=== PATIENT | male | born 1955 | race Caucasian/White ===

== ENCOUNTER 2017-10-06 08:25 | Inpatient (IN) | payer BC, OTHER ==
[2017-10-06] VITALS (10 sets, daily range): BP systolic 115–137; BP diastolic 56–84; PULSE 58–87; RESP 19–22; TEMP 97.7–99.4; O2SAT 94–99
[~2017-10-06] VITALS: Ht 182.9 cm; Wt 73.1 kg
[~2017-10-06 08:25] MED LIST: ASPI81 PO; CEPH500C3 PO; LORT5TAB PO; NIAC100T3 PO; SULF1TAB47 PO; TAB-TAB PO
[2017-10-06] MEDS ORDERED: IOHEXOL 350 MG/ML 10 ML VIAL (for RAD DIAG) IVCONTRAST ONE (08:26)
[2017-10-06] MEDS ORDERED: MULTTAB67 PO (08:40)
[2017-10-06] MEDS ORDERED: VENTAER INH (08:40)
[2017-10-06] MEDS ORDERED: NIAC100T2 PO (08:40)
[2017-10-06] MEDS ORDERED: PRED50 PO (08:40)
[2017-10-06] MEDS ORDERED: ASPI81CH6 CHEW (08:40)
[2017-10-06] MEDS ORDERED: BENZ1CAP51 PO (08:40)
[2017-10-06] MEDS ORDERED: ZITH250T PO (08:40)
--- NOTE | 2017-10-06 08:46 | PD ---
HPI Chief Complaint: Respiratory Symptoms Time Seen by Provider: 08:32 Travel History International Travel<30 days: No Contact w/Intl Traveler<30days: No Traveled to known affect area: No History of Present Illness HPI 62-year-old male complains of chest pain and shortness of breath. Patient states that his symptoms started 5 days ago. Patient states that pain aching pain and sharp pain localized to left chest. Patient denies any pain radiation. Patient denies palpitation nausea diaphoresis. Patient states that he has shortness of breath with the chest pain. Patient was seen at local walk- in clinic 2 days ago and was diagnosed with sinusitis and given prescription for antibiotic and an inhaler. Patient states that the symptoms get worse despite the medications. Patient has history of emphysema. Patient is a smoker. Patient denies history hypertension, diabetes. Patient has history of elevated triglyceride. Patient denies family history of heart disease. Patient denies history of CAD. On a scale of 1-10 the pain is a 5. PFSH Past Medical History Autoimmune Disease: No Blood Disorders: No Cancer: No Cardiovascular Problems: Yes COPD: Yes Diabetes: No Diminished Hearing: No Endocrine: No Glaucoma: No Genitourinary: No Hepatitis: No Hiatal Hernia: No Hypertension: No Musculoskeletal: No Neurologic: No Psychiatric: No Respiratory: Yes Radiation Therapy: No Thyroid Disease: No Triglycerides - High: Yes Tetanus Vaccination: Unknown Influenza Vaccination: No Past Surgical History Ear Surgery: No Eye Surgery: No Gynecologic Surgery: No Oral Surgery: No Other Surgery: Yes (2003 LEFT ARM SURGERY) Social History Alcohol Use: No Tobacco Use: Yes (1 PPD) Substance Use: No Allergies-Medications (Allergen,Severity, Reaction): Coded Allergies: codeine (Unverified Allergy, Severe, 10/06/17) Reported Meds & Prescriptions Reported Meds & Active Scripts Active Reported Zithromax (Azithromycin) 250 Mg Tab 250 Mg PO DIRECTED Take 2 tabs (500 mg) on day 1 then 1 tab daily x 4 days. Benzonatate 200 Mg Cap 200 Mg PO TID PRN Prednisone 50 Mg Tab 50 Mg PO DAILY Ventolin Hfa 18 GM Inh (Albuterol Sulfate) 90 Mcg/Act Aer 2 Puff INH Q4-6H PRN Multiple Vitamin 1 Tab 1 Tab PO DAILY Niacin 100 Mg Tab 100 Mg PO DAILY Aspirin Low Dose (Aspirin) 81 Mg Chew 81 Mg CHEW DAILY Review of Systems General / Constitutional: No: Fever Eyes: No: Visual changes HENT: No: Headaches Cardiovascular: Positive: Chest Pain or Discomfort Respiratory: Positive: Shortness of Breath Gastrointestinal: No: Abdominal Pain Genitourinary: No: Dysuria Musculoskeletal: No: Pain Skin: No Rash Neurologic: No: Weakness Psychiatric: No: Depression Endocrine: No: Polydipsia Hematologic/Lymphatic: No: Easy Bruising Physical Exam Narrative GENERAL: Well-nourished, well-developed patient. SKIN: Focused skin assessment warm/dry. HEAD: Normocephalic. EYES: No scleral icterus. No injection or drainage. NECK: Supple, trachea midline. No JVD or lymphadenopathy. CARDIOVASCULAR: Regular rate and rhythm without murmurs, gallops, or rubs. RESPIRATORY: Breath sounds equal bilaterally. No accessory muscle use. GASTROINTESTINAL: Abdomen soft, non-tender, nondistended. MUSCULOSKELETAL: No cyanosis, or edema. BACK: Nontender without obvious deformity. No CVA tenderness. Neurologic exam normal. Data Data Last Documented VS Vital Signs Date Time Temp Pulse Resp B/P (MAP) Pulse Ox O2 Delivery O2 Flow Rate FiO2 10/06/17 12:00 78 19 137/79 (98) 96 Room Air 10/06/17 08:28 99.4 Orders Orders Electrocardiogram (10/06/17 08:38) Complete Blood Count With Diff (10/06/17 08:38) Comprehensive Metabolic Panel (10/06/17 08:38) Creatine Kinase (Cpk) (10/06/17 08:38) Troponin I (10/06/17 08:38) B-Type Natriuretic Peptide (10/06/17 08:38) Prothrombin Time / Inr (Pt) (10/06/17 08:38) Act Partial Throm Time (Ptt) (10/06/17 08:38) D-Dimer (10/06/17 08:38) Chest, Single Ap (10/06/17 08:38) Iv Access Insert/Monitor (10/06/17 08:38) Ecg Monitoring (10/06/17 08:38) Oximetry (10/06/17 08:38) Ct Pulmonary Angiogram (10/06/17 08:38) Iohexol 350 Inj (Omnipaque 350 Inj) (10/06/17 08:26) Labs Laboratory Tests Test 10/06/17 08:45 White Blood Count 6.4 TH/MM3 Red Blood Count 5.39 MIL/MM3 Hemoglobin 14.9 GM/DL Hematocrit 44.5 % Mean Corpuscular Volume 82.6 FL Mean Corpuscular Hemoglobin 27.6 PG Mean Corpuscular Hemoglobin Concent 33.4 % Red Cell Distribution Width 14.1 % Platelet Count 136 TH/MM3 Mean Platelet Volume 8.8 FL Neutrophils (%) (Auto) 74.0 % Lymphocytes (%) (Auto) 16.5 % Monocytes (%) (Auto) 8.6 % Eosinophils (%) (Auto) 0.0 % Basophils (%) (Auto) 0.9 % Neutrophils # (Auto) 4.7 TH/MM3 Lymphocytes # (Auto) 1.1 TH/MM3 Monocytes # (Auto) 0.6 TH/MM3 Eosinophils # (Auto) 0.0 TH/MM3 Basophils # (Auto) 0.1 TH/MM3 CBC Comment DIFF FINAL Differential Comment Prothrombin Time 9.8 SEC Prothromb Time International Ratio 1.0 RATIO Activated Partial Thromboplast Time 28.0 SEC D-Dimer Quantitative (PE/DVT) 0.40 MG/L FEU Blood Urea Nitrogen 11 MG/DL Creatinine 1.10 MG/DL Random Glucose 96 MG/DL Total Protein 8.0 GM/DL Albumin 3.4 GM/DL Calcium Level 9.2 MG/DL Alkaline Phosphatase 71 U/L Aspartate Amino Transf (AST/SGOT) 53 U/L Alanine Aminotransferase (ALT/SGPT) 57 U/L Total Bilirubin 0.3 MG/DL Sodium Level 141 MEQ/L Potassium Level 3.7 MEQ/L Chloride Level 105 MEQ/L Carbon Dioxide Level 26.6 MEQ/L Anion Gap 9 MEQ/L Estimat Glomerular Filtration Rate 68 ML/MIN Total Creatine Kinase 92 U/L Troponin I LESS THAN 0.02 NG/ML B-Type Natriuretic Peptide 66 PG/ML [facility] Medical Decision Making Medical Screen Exam Complete: Yes Emergency Medical Condition: Yes Interpretation(s) EKG shows sinus rhythm nonspecific ST-T wave change. 10:35 AM. CBC with WBC 6.4. Hemoglobin 14.9 hematocrit 44.5. Platelet 136. 74 neutrophil. CMP within normal limits. Cardiac enzymes are normal. BNP 66. D-dimer 0.40. Differential Diagnosis Differential diagnosis including acute exacerbation of COPD, rhonchi days, pneumonia, PE, pneumothorax, DE. Narrative Course 62-year-old male with chest pain and shortness of breath. Rocephin 1 g IV. Zithromax 500 mg IV. Diagnosis Primary Impression: Pneumonia Qualified Codes: J18.1 - Lobar pneumonia, unspecified organism Additional Impression: Chest pain Qualified Codes: R07.9 - Chest pain, unspecified Admitting Information Admitting Physician Requests: it Dakota Guillermo MD October 06, 2017 08:46
[2017-10-06 08:54] LABS: AUTOMATED NEUTROPHIL # 4.7 TH/MM3 (1.8-7.7); BASOPHIL # 0.1 TH/MM3 (0-0.2); BASOPHIL % 0.9 % (0.0-2.0); HEMATOCRIT 44.5 % (39.0-51.0); HEMOGLOBIN 14.9 GM/DL (13.0-17.0); LYMPH % 16.5 % (9.0-44.0); LYMPHOCYTE # 1.1 TH/MM3 (1.0-4.8); MEAN CELL VOLUME 82.6 FL (80.0-100.0); MEAN CORPUSCULAR HEMOGLOBIN 27.6 PG (27.0-34.0); MEAN CORPUSCULAR HGB CONC 33.4 % (32.0-36.0); MEAN PLATELET VOLUME 8.8 FL (7.0-11.0); MONO % 8.6 % (0.0-8.0); MONOCYTE # 0.6 TH/MM3 (0-0.9); PLATELET COUNT 136 TH/MM3 (150-450); RED BLOOD COUNT 5.39 MIL/MM3 (4.50-5.90); RED CELL DISTRIBUTION WIDTH 14.1 % (11.6-17.2); WHITE BLOOD COUNT 6.4 TH/MM3 (4.0-11.0)
[2017-10-06 09:07] LABS: ALBUMIN 3.4 GM/DL (3.4-5.0); ALT (GPT) 57 U/L (12-78); AST (GOT) 53 U/L (15-37); BICARBONATE 26.6 MEQ/L (21.0-32.0); BLOOD UREA NITROGEN 11 MG/DL (7-18); CALCIUM 9.2 MG/DL (8.5-10.1); CHLORIDE 105 MEQ/L (98-107); GLOMERULAR FILTRATION RATE 68 ML/MIN (>89); GLUCOSE,RANDOM 96 MG/DL (74-106); SODIUM (NA) 141 MEQ/L (136-145)
[2017-10-06 09:08] LABS: PROTHROMBIN TIME - PATIENT 9.8 SEC (9.8-11.6)
[2017-10-06 09:10] LABS: D-DIMER 0.4 MG/L FEU (0.00-0.50)
[2017-10-06 09:21] LABS: ALKALINE PHOSPHATASE 71 U/L (45-117); TOTAL BILIRUBIN ADULT 0.3 MG/DL (0.2-1.0); TROPONIN I LESS THAN 0.02 NG/ML (0.02-0.05)
--- NOTE | 2017-10-06 09:33 | RADRPT ---
EXAM DATE: 10/06/2017 9:30 AM EDT AGE/SEX: 62 years / Male INDICATIONS: Short of Breath CLINICAL DATA: This is the patient's initial encounter. Patient reports that signs and symptoms have been present for 1 day and indicates a pain score of 0/10. MEDICAL/SURGICAL HISTORY: None. None. COMPARISON: No prior exams available for comparison. FINDINGS: Single AP view of the chest demonstrates an area of mild airspace density involving the basilar aspec t of the right upper lobe. The lungs are otherwise grossly clear. Heart size appears normal. Pulmonar y vasculature is normal. Osseous structures are intact. CONCLUSION: Right upper lobe airspace process. This may reflect pneumonia or infarct secondary to PE. Recommend f ollow-up imaging to evaluate for resolution. Electronically signed by: Cydney De Santiago MD 10/06/2017 9:31 AM EDT
--- NOTE | 2017-10-06 12:19 | RADRPT ---
EXAM DATE: 10/06/2017 12:09 PM EDT AGE/SEX: 62 years / Male INDICATIONS: LEFT SIDE CHEST PAIN,SHORTNESS OF BREATH CLINICAL DATA: This is the patient's initial encounter. Patient reports that signs and symptoms have been present for 1 day and indicates a pain score of 5/10. MEDICAL/SURGICAL HISTORY: Chronic obstructive pulmonary disease. None. RADIATION DOSE: 10.54 CTDI (mGy) COMPARISON: No prior exams available for comparison. TECHNIQUE: Volumetric scanning was performed using a multi-row detector CT scanner during bolus infu shy of 75 ml Omnipaque 350 (iohexol) nonionic water-soluble contrast as a single exam dose. The melvin a was post processed with a variety of visualization algorithms including full volume maximum intensi ty projection and sliding thin slab reformation. Using automated exposure control and adjustment of the mA and/or kV according to patient size, radiation dose was kept as low as reasonably achievable t o obtain optimal diagnostic quality images. FINDINGS: There is patchy airspace consolidation in the right lung, mostly peripheral and also at the left lung base. There is some mild right-sided hilar adenopathy with a lymph node measuring up to 1.8 cm in lo ng axis diameter. Borderline enlarged subcarinal lymph node. There is no pleural or pericardial effusion. No filling defects to suggest pulmonary embolic disease. Small hepatic cyst anteriorly. CONCLUSION: 1. Negative for pulmonary embolus. 2. Patchy airspace disease in the lungs, right greater than left. Airspace disease is predominantly peripheral. Differential diagnosis includes infectious bronchopneumonia but would also consider use o f follicular pneumonia. 3. No effusion. Right hilar adenopathy. Small hepatic cyst. Electronically signed by: Zheng Weaver MD 10/06/2017 12:18 PM EDT
[2017-10-06] MEDS ORDERED: AZITHROMYCIN INJ 500 MG in SODIUM CHLOR 0.9% 250 ML INJ 250 ML IV ONE (13:30)
[2017-10-06] MEDS ORDERED: cefTRIAXone INJ 1,000 MG in SODIUM CHLORIDE 0.9% INJ 100 ML IV ONE (13:30)
[2017-10-06] MEDS ORDERED: RESP: ALBUTEROL 2.5 MG/3 ML NEB (PRN) NEB (13:45)
[2017-10-06] MEDS: SODIUM CHLORIDE 0.9% FLUSH 10 ML FLUSH IV FLUSH PRN ×2 (13:51→15:05)
[2017-10-06] MEDS: methylPREDNISolone SOD SUCC 125 MG/2 ML VIAL IV PUSH SCH ×2 (13:51→20:56)
--- NOTE | 2017-10-06 13:57 | EKG ---
Date Performed: 10/06/2017 Time Performed: 08:32:48 PTAGE: 62 years EKG: Marked baseline artifact Sinus rhythm POSSIBLE RIGHT VENTRICULAR CONDUCTION DELAY BORDERLINE ECG Within the constraints of artifact, I see no definite changes except for increased rate. NO PREVIOUS TRACING DOCTOR: Ted Garcia Interpretating Date/Time 10/06/2017 13:56:05
--- NOTE | 2017-10-06 14:11 | HHI.HP ---
HPI Service [facility] ([place], [place])ists Primary Care Physician No Primary Care Physician Admission Diagnosis Pneumonia. Chest pain. Diagnoses: Travel History International Travel<30 Days: No Contact w/Intl Traveler <30 Da: No Traveled to Known Affected Are: No History of Present Illness 62-year-old male with a [id number] smoking history who presents with a 6 day history of nonproductive cough, fevers up to 102, chills, 2 day history of right ear sensation of blockage, and also today with vertigo, nausea without vomiting. Patient went to urgent care on Wednesday and was prescribed azithromycin,albuterol, prednisone 50 mg daily which he has been taking without improvement. He says that vertigo present earlier today has subsided. He denies any thom pain in his right ear. He reports shortness of breath. Patient denies any chest pain. Denies any diarrhea, constipation, dysuria. Review of Systems Except as stated in HPI: all other systems reviewed are Neg Past Family Social History Past Medical History Suspect chronic COPD Hyperlipidemia Past Surgical History Left arm surgery in 2003. Right finger surgery Reported Medications Reported Meds & Active Scripts Active Reported Zithromax (Azithromycin) 250 Mg Tab 250 Mg PO DIRECTED Take 2 tabs (500 mg) on day 1 then 1 tab daily x 4 days. Benzonatate 200 Mg Cap 200 Mg PO TID PRN Prednisone 50 Mg Tab 50 Mg PO DAILY Ventolin Hfa 18 GM Inh (Albuterol Sulfate) 90 Mcg/Act Aer 2 Puff INH Q4-6H PRN Multiple Vitamin 1 Tab 1 Tab PO DAILY Niacin 100 Mg Tab 100 Mg PO DAILY Aspirin Low Dose (Aspirin) 81 Mg Chew 81 Mg CHEW DAILY Allergies: Coded Allergies: codeine (Unverified Allergy, Severe, 10/06/17) Family History Mother with ovarian cancer. Father with heart disease beginning at age 50. Social History Patient smoked one half pack per day for the past 40 years. Denies any drinking. Denies any illicit drugs. Physical Exam Vital Signs Vital Signs Date Time Temp Pulse Resp B/P (MAP) Pulse Ox O2 Delivery O2 Flow Rate FiO2 10/06/17 12:00 78 19 137/79 (98) 96 Room Air 10/06/17 08:51 98 Room Air 10/06/17 08:41 82 22 99 Room Air 10/06/17 08:28 99.4 77 22 125/84 (98) 99 Physical Exam GENERAL: This is a well-nourished, well-developed patient, who appears short of breath. Able to talk in half sentences. Alert and oriented 3. SKIN: No rashes, ecchymoses or lesions. Cool and dry. HEAD: Atraumatic. Normocephalic. No temporal or scalp tenderness. EYES: Pupils equal round and reactive. Extraocular motions intact. No scleral icterus. No injection or drainage. ENT: Nose without bleeding, purulent drainage or septal hematoma. Throat without erythema, tonsillar hypertrophy or exudate. Uvula midline. Airway patent. NECK: Trachea midline. No JVD or lymphadenopathy. Supple, nontender, no meningeal signs. CARDIOVASCULAR: Regular rate and rhythm without murmurs, gallops, or rubs. RESPIRATORY: No rhonchi. Crackles bilaterally, however predominantly in right lung zhu. No wheezes. GASTROINTESTINAL: Abdomen soft, non-tender, nondistended. No hepato-splenomegaly , or palpable masses. No guarding. MUSCULOSKELETAL: Extremities without clubbing, cyanosis, or edema. No joint tenderness, effusion, or edema noted. No calf tenderness. Negative Homans sign bilaterally. NEUROLOGICAL: Awake and alert. Cranial nerves II through XII intact. Motor and sensory grossly within normal limits. Five out of 5 muscle strength in all muscle groups. Normal speech. Laboratory Laboratory Tests Test 10/06/17 08:45 White Blood Count 6.4 Red Blood Count 5.39 Hemoglobin 14.9 Hematocrit 44.5 Mean Corpuscular Volume 82.6 Mean Corpuscular Hemoglobin 27.6 Mean Corpuscular Hemoglobin Concent 33.4 Red Cell Distribution Width 14.1 Platelet Count 136 Mean Platelet Volume 8.8 Neutrophils (%) (Auto) 74.0 Lymphocytes (%) (Auto) 16.5 Monocytes (%) (Auto) 8.6 Eosinophils (%) (Auto) 0.0 Basophils (%) (Auto) 0.9 Neutrophils # (Auto) 4.7 Lymphocytes # (Auto) 1.1 Monocytes # (Auto) 0.6 Eosinophils # (Auto) 0.0 Basophils # (Auto) 0.1 CBC Comment DIFF FINAL Differential Comment Prothrombin Time 9.8 Prothromb Time International Ratio 1.0 Activated Partial Thromboplast Time 28.0 D-Dimer Quantitative (PE/DVT) 0.40 Blood Urea Nitrogen 11 Creatinine 1.10 Random Glucose 96 Total Protein 8.0 Albumin 3.4 Calcium Level 9.2 Alkaline Phosphatase 71 Aspartate Amino Transf (AST/SGOT) 53 Alanine Aminotransferase (ALT/SGPT) 57 Total Bilirubin 0.3 Sodium Level 141 Potassium Level 3.7 Chloride Level 105 Carbon Dioxide Level 26.6 Anion Gap 9 Estimat Glomerular Filtration Rate 68 Total Creatine Kinase 92 Troponin I LESS THAN 0.02 B-Type Natriuretic Peptide 66 Date/Time Source Procedure Growth Status 10/06/17 13:40 Blood Peripheral Aerobic Blood Culture Pending Received 10/06/17 13:40 Blood Peripheral Anaerobic Blood Culture Pending Received Result Diagram: 10/06/1745 10/06/17844 Imaging Last Impressions Chest X-Ray 10/06/17837 Signed Impressions: CONCLUSION: Right upper lobe pneumonia CT Angiography 10/06/17837 Signed Impressions: CONCLUSION: Bilateral airspace disease. Caprini VTE Risk Assessment Caprini VTE Risk Assessment: Mod/High Risk (score >= 2) Caprini Risk Assessment Model Point Value = 1 Point Value = 2 Point Value = 3 Point Value = 5 Age 41-60 Minor surgery BMI > 25 kg/m2 Swollen legs Varicose veins or History of unexplained or recurrent spontaneous Oral contraceptives or hormone replacement Sepsis (< 1 month) Serious lung disease, including pneumonia (< 1 month) Abnormal pulmonary function Acute myocardial infarction Congestive heart failure (< 1 month) History of inflammatory bowel disease Medical patient at bed rest Age 61-74 Arthroscopic surgery Major open surgery (> 45 min) Laparoscopic surgery (> 45 min) Malignancy Confined to bed (> 72 hours) Immobilizing plaster cast Central venous access Age >= 75 History of VTE Family history of VTE Factor V Leiden Prothrombin [id number] Lupus anticoagulant Anticardiolipin antibodies Elevated serum homocysteine Heparin-induced thrombocytopenia Other congenital or acquired thrombophilia Stroke (< 1 month) Elective arthroplasty Hip, pelvis, or leg fracture Acute spinal cord injury (< 1 month) Prophylaxis Regimen Total Risk Factor Score Risk Level Prophylaxis Regimen 0-1 Low Early ambulation 2 Moderate Order ONE of the following: *Sequential Compression Device (SCD) *Heparin 5000 units SQ BID 3-4 Higher Order ONE of the following medications: *Heparin 5000 units SQ TID *Enoxaparin/Lovenox 40 mg SQ daily (WT < 150 kg, CrCl > 30 mL/min) *Enoxaparin/Lovenox 30 mg SQ daily (WT < 150 kg, CrCl > 10-29 mL/min) *Enoxaparin/Lovenox 30 mg SQ BID (WT < 150 kg, CrCl > 30 mL/min) AND/OR *Sequential Compression Device (SCD) 5 or more Highest Order ONE of the following medications: *Heparin 5000 units SQ TID (Preferred with Epidurals) *Enoxaparin/Lovenox 40 mg SQ daily (WT < 150 kg, CrCl > 30 mL/min) *Enoxaparin/Lovenox 30 mg SQ daily (WT < 150 kg, CrCl > 10-29 mL/min) *Enoxaparin/Lovenox 30 mg SQ BID (WT < 150 kg, CrCl > 30 mL/min) AND *Sequential Compression Device (SCD) Assessment and Plan Assessment and Plan //Community-acquired pneumonia //Atypical pneumonia //Suspected COPD exacerbation //Chronic smoker = Failure of outpatient treatment. = CT pulmonary angiogram with no evidence of PE, however still shows patchy airspace disease bilaterally, right greater than left. Suspect infectious bronchopneumonia versus follicular pneumonia. = Smoking cessation counseling provided. = Having failed outpatient treatment with steroids, albuterol inhaler, azithromycin. = We will treat here with levofloxacin, IV steroids, scheduled and as needed duo nebs. //Dizziness. //Vertigo acute onset -Vertigo likely secondary to right ear effusion. Mild discomfort in right ear, cannot be visualized secondary to wax impaction. -Vertigo seems to have resolved at this time. Continue to monitor Antibiotics as above. Discussed Condition With Patient, nurse, ED physician, at bedside. Physician Certification 2 Midnight Certification Type: Admission for Inpatient Services Order for Inpatient Services The services are ordered in accordance with Medicare regulations or non- Medicare payer requirements, as applicable. In the case of services not specified as inpatient-only, they are appropriately provided as inpatient services in accordance with the 2-midnight benchmark. Estimated LOS (days): 2 days is the estimated time the patient will need to remain in the hospital, assuming treatment plan goals are met and no additional complications. Post-Hospital Plan: Home Oz Danielle MD October 06, 2017 14:11
[2017-10-06] MEDS: LEVOFLOXACIN 750 MG TAB PO SCH (15:04)
[2017-10-06] MEDS ORDERED: DEXTROMETHORPHAN SYRUP 7.5MG/5ML UDC PO PRN (16:15)
[2017-10-06] MEDS: BENZONATATE 100 MG CAP PO PRN (16:35)
[2017-10-06] MEDS: RESP: ALBUTEROL 2.5 MG/IPRATROPIUM 0.5 MG NEB (SCH) NEB ×2 (17:01→20:16)
[2017-10-06] MEDS: SODIUM CHLORIDE 0.9% FLUSH 10 ML FLUSH IV FLUSH SCH (20:56)
[2017-10-07] VITALS (12 sets, daily range): BP systolic 113–129; BP diastolic 61–69; PULSE 51–80; RESP 18–19; TEMP 97.2–98; O2SAT 95–100
[2017-10-07] MEDS: RESP: ALBUTEROL 2.5 MG/IPRATROPIUM 0.5 MG NEB (SCH) NEB ×4 (03:21→22:09)
[2017-10-07] MEDS: methylPREDNISolone SOD SUCC 125 MG/2 ML VIAL IV PUSH SCH ×4 (03:44→20:53)
[2017-10-07] MEDS: BENZONATATE 100 MG CAP PO PRN ×2 (03:47→20:53)
[2017-10-07 06:53] LABS: AUTOMATED NEUTROPHIL # 1.8 TH/MM3 (1.8-7.7); BASOPHIL % 0.4 % (0.0-2.0); HEMATOCRIT 43.6 % (39.0-51.0); HEMOGLOBIN 14.3 GM/DL (13.0-17.0); LYMPH % 23.6 % (9.0-44.0); LYMPHOCYTE # 0.6 TH/MM3 (1.0-4.8); MEAN CELL VOLUME 83.3 FL (80.0-100.0); MEAN CORPUSCULAR HEMOGLOBIN 27.3 PG (27.0-34.0); MEAN CORPUSCULAR HGB CONC 32.7 % (32.0-36.0); MEAN PLATELET VOLUME 9.7 FL (7.0-11.0); MONO % 6.9 % (0.0-8.0); MONOCYTE # 0.2 TH/MM3 (0-0.9); NEUT % 69.1 % (16.0-70.0); PLATELET COUNT 118 TH/MM3 (150-450); RED BLOOD COUNT 5.24 MIL/MM3 (4.50-5.90); RED CELL DISTRIBUTION WIDTH 14.2 % (11.6-17.2); WHITE BLOOD COUNT 2.6 TH/MM3 (4.0-11.0)
[2017-10-07 07:12] LABS: BICARBONATE 23.5 MEQ/L (21.0-32.0); CALCIUM 8.8 MG/DL (8.5-10.1); CREATININE 1.06 MG/DL (0.60-1.30)
[2017-10-07] MEDS: SODIUM CHLORIDE 0.9% FLUSH 10 ML FLUSH IV FLUSH SCH ×2 (07:47→20:53)
--- NOTE | 2017-10-07 09:02 | MB ---
cc: Debi Mayberry MD DATE: 10/07/2017 HISTORY OF PRESENT ILLNESS: This is a 62-year-old white male who has smoked most of his adult life, currently smoking about 10 cigarettes a day, has stopped on and off. Probably a 30-40 pack year history. He presented with cough, congestion, fever and shortness of breath. Chest x-ray reveals scattered infiltrates in both lungs. His has recently been ill with an upper respiratory infection and was treated with antibiotics and was feeling better. There has been no recent travel, no unusual inhalation exposures, no animal exposures. No significant prior pulmonary history that he is aware of and has never been told specifically whether he has COPD. PAST MEDICAL HISTORY: No prior cardiovascular history. He is not diabetic. No history of malignancy. He did have some surgery on his left arm and right hand. No other medical illnesses. ALLERGIES: INTOLERANT TO CODEINE CAUSED NAUSEA AND VOMITING AND A RED FLUSHING OF HIS FACE. SOCIAL HISTORY: , living with his . No excessive alcohol use. Smoking about 10 cigarettes a day. FAMILY HISTORY: Mother of ovarian cancer. Father of heart disease in his 50s. CURRENT MEDICATIONS: Reviewed in the EMR. REVIEW OF SYSTEMS: No headache or visual change. No nausea, vomiting, or chronic reflux disease. No diarrhea. No swelling in his legs. He has been short of breath with this illness. PHYSICAL EXAMINATION: VITAL SIGNS: 97 degrees, 119/66, pulse is 60, respirations are 18 and nonlabored, O2 saturation on 2 liters is 97% to 100%, on room air on presentation was 94. HEENT: Sclerae are anicteric. Mucous membranes are moist. The pharynx is clear. No adenopathy in the neck or supraclavicular region. CHEST: Really quite clear. No significant congestion or wheezing. HEART: Regular rhythm. No harsh murmur. ABDOMEN: Soft. EXTREMITIES: No peripheral edema. He does have chronic venostasis changes in his legs, although no edema just discoloration. He says he has had that for years. No cyanosis or clubbing. IMAGING: Chest CT reveals no evidence of thromboembolism. Scattered alveolar infiltrates in both lungs, right greater than left, upper lobe, more predominant. No significant effusions. LABORATORY DATA: White blood cell count is 6400, hemoglobin is 14. BUN and creatinine normal. DISCUSSION: Mr. Lucero presents with what appears to be an atypical pneumonia given scattered infiltrates. No unusual exposures that I can identify. He is a smoker. Probably has some underlying chronic obstructive pulmonary disease. The peripheral nature of this raises a bit of suspicion for eosinophilic pneumonia, particularly in a smoking history. In any event, he has had a good response to initial introduction of steroids. He is on oral Levaquin. We will continue that. Continue aerosol treatments. I will check spirometry to see if he has significant chronic obstructive pulmonary disease. I would suggest continuing this therapy through the day and if well tomorrow, we can do an oxygen study, check his chest x-ray and see if he can be continued on outpatient therapy. I have explained to Mr. Lucero that he must stop smoking. R. Jean Mayberry MD RSW/TL , 08:45 AM , 09:01 AM
--- NOTE | 2017-10-07 09:23 | RADRPT ---
EXAM DATE: 10/07/2017 9:13 AM EDT AGE/SEX: 62 years / Male INDICATIONS: Short of breath, cough, evaluate pneumonia, chest discomfort CLINICAL DATA: This is the patient's subsequent encounter. Patient reports that signs and symptoms h ave been present for 2 days and indicates a pain score of 2/10. MEDICAL/SURGICAL HISTORY: . smoker . right arm COMPARISON: [facility] [place], CT PULMONARY ANGIOGRAM, 10/06/2017. . FINDINGS: Redemonstration of patchy right upper lobe airspace disease which appears more consolidated inferiorl y. Cardiomediastinal contours are within normal limits. Bony thorax is intact. CONCLUSION: 1. Stable patchy right upper lobe airspace disease which appears focally more consolidated inferiorl y. 2. No significant interval change. Electronically signed by: Yahir Hilliard MD 10/07/2017 9:22 AM EDT
--- NOTE | 2017-10-07 09:23 | HHI.PR ---
Subjective Remarks in no acute distress. sob has much improved. no fever. d/w the RN. Objective Vitals Vital Signs Date Time Temp Pulse Resp B/P (MAP) Pulse Ox O2 Delivery O2 Flow Rate FiO2 10/07/17 09:06 53 10/07/17 08:11 96 Nasal Cannula 2.00 10/07/17 04:00 97.6 53 19 119/66 (83) 100 10/07/17 04:00 Nasal Cannula 2.00 10/07/17 04:00 54 10/07/17 01:25 51 10/07/17 00:00 97.9 60 19 117/66 (83) 97 10/07/17 00:00 Nasal Cannula 2.00 10/06/17 23:18 58 10/06/17 20:16 98 Nasal Cannula 2.00 10/06/17 20:00 Nasal Cannula 2.00 10/06/17 20:00 97.7 71 20 115/56 (75) 96 10/06/17 19:45 97 10/06/17 17:03 95 Nasal Cannula 2.00 10/06/17 15:18 99.1 70 20 117/72 (87) 94 10/06/17 15:14 10/06/17 14:30 87 19 120/67 (84) 94 Room Air 10/06/17 12:00 78 19 137/79 (98) 96 Room Air I/O 10/06/17 10/06/17 10/06/17 10/07/17 10/07/17 10/07/17 06:59 14:59 22:59 06:59 14:59 22:59 Intake Total 100 ml 0 ml Output Total 950 ml Balance 100 ml -950 ml Intake Oral 0 ml IV Total 100 ml Output Urine Total 950 ml # Bowel Movements 0 Result Diagram: 10/07/17 0520 10/07/17 0520 Imaging Last Impressions Chest X-Ray 10/06/17 0838 Signed Impressions: CONCLUSION: Right upper lobe airspace process. This may reflect pneumonia or infarct second letty to PE. Recommend follow-up imaging to evaluate for resolution. CT Angiography 10/06/17837 Signed Impressions: CONCLUSION: 1. Negative for pulmonary embolus. 2. Patchy airspace disease in the lungs, right greater than left. Airspace dis ease is predominantly peripheral. Differential diagnosis includes infectious br onchopneumonia but would also consider use of follicular pneumonia. 3. No effusion. Right hilar adenopathy. Small hepatic cyst. Objective Remarks GENERAL: This is a well-nourished, well-developed patient, in no apparent distress. CARDIOVASCULAR: Regular rate and regular rhythm without murmurs, gallops, or rubs. RESPIRATORY: Clear to auscultation. Breath sounds equal bilaterally. No wheezes , rales, or rhonchi. GASTROINTESTINAL: Abdomen soft, non-tender, nondistended. Normal, active bowel sounds MUSCULOSKELETAL: Extremities without clubbing, cyanosis, or edema. NEURO: Alert & Oriented x4 to person, place, time, situation. Moves all ext x4 Medications and IVs Inpatient Medications Albuterol Sulfate (Albuterol Neb) 2.5 mg Q2HR NEB PRN NEB SHORTNESS OF BREATH; Start 10/06/17 at 13:45 Albuterol/ Ipratropium (Duoneb Neb) 1 ampule Q6HR NEB NEB Last administered on 10/07/17at 08:09; Start 10/06/17 at 16:00 Azithromycin 500 mg/Sodium Chloride 250 ml @ 250 mls/hr ONCE ONCE IV Last administered on 10/06/17at 15:05; Start 10/06/17 at 13:30; Stop 10/06/17 at 14:29 ; Status DC Benzonatate (Tessalon) 100 mg TID PRN PO COUGH Last administered on 10/07/17at 03:47; Start 10/06/17 at 15:00 Ceftriaxone Sodium 1000 mg/ Sodium Chloride 100 ml @ 200 mls/hr ONCE ONCE IV Last administered on 10/06/17at 13:52; Start 10/06/17 at 13:30; Stop 10/06/17 at 13:59; Status DC Dextromethorphan (Robitussin La Pediatric Cough Liq) 7.5 mg Q6H PRN PO COUGH; Start 10/06/17 at 16:15 Levofloxacin (Levaquin) 750 mg Q24H PO Last administered on 10/06/17at 15:04; Start 10/06/17 at 14:00 Methylprednisolone Sodium Succinate (SoluMEDROL INJ) 60 mg Q6H IV PUSH Last administered on 10/07/17at 07:47; Start 10/06/17 at 14:00 Sodium Chloride (NS Flush) 2 ml UNSCH PRN IV FLUSH FLUSH AFTER USING IV ACCESS Last administered on 10/06/17at 15:05; Start 10/06/17 at 13:45 A/P Assessment and Plan A/P -Community-acquired pneumonia/vs Atypical pneumonia with suspected COPD exacerbation -Chronic smoker -Failure of outpatient treatment. CT pulmonary angiogram with no evidence of PE, however still shows patchy airspace disease bilaterally, right greater than left. Suspect infectious bronchopneumonia versus follicular pneumonia. Smoking cessation counseling provided. continue with levofloxacin, IV steroids, scheduled and as needed duo nebs. pulmonary consult appreciated. repeat CXR tomorrow- might consider walk test before discharge. -Dizziness. -Vertigo acute onset -Vertigo likely secondary to right ear effusion. Mild discomfort in right ear, cannot be visualized secondary to wax impaction. -Vertigo seems to have resolved at this time. Continue to monitor Antibiotics as above. Discharge Planning dc home tomorrow if stable- pending CXR/ pulmonary f/u. Javier Xiong MD October 07, 2017 09:23
[2017-10-07] MEDS: LEVOFLOXACIN 750 MG TAB PO SCH (14:14)
[2017-10-08] VITALS (10 sets, daily range): BP systolic 115–146; BP diastolic 61–66; PULSE 56–70; RESP 18–20; TEMP 96.8–97.9; O2SAT 93–98
[2017-10-08] MEDS: methylPREDNISolone SOD SUCC 125 MG/2 ML VIAL IV PUSH SCH ×3 (03:06→13:36)
[2017-10-08] MEDS: RESP: ALBUTEROL 2.5 MG/IPRATROPIUM 0.5 MG NEB (SCH) NEB ×2 (03:16→15:18)
[2017-10-08] MEDS: SODIUM CHLORIDE 0.9% FLUSH 10 ML FLUSH IV FLUSH SCH (07:51)
--- NOTE | 2017-10-08 09:39 | HHI.PR ---
Subjective Remarks in no acute distress. still with cough but says that his sob is improving. no fever. Objective Vitals Vital Signs Date Time Temp Pulse Resp B/P (MAP) Pulse Ox O2 Delivery O2 Flow Rate FiO2 10/08/17 08:00 97.7 60 20 116/66 (83) 94 10/08/17 04:00 Nasal Cannula 2.00 10/08/17 04:00 63 10/08/17 04:00 96.8 63 18 115/61 (79) 95 10/08/17 00:00 Nasal Cannula 2.00 10/08/17 00:00 97.7 61 18 127/61 (83) 94 10/08/17 00:00 57 10/07/17 22:11 97 Nasal Cannula 2.00 10/07/17 20:00 59 10/07/17 20:00 98.0 59 18 129/61 (83) 99 10/07/17 20:00 Nasal Cannula 2.00 10/07/17 16:28 95 Nasal Cannula 2.00 10/07/17 16:28 62 10/07/17 16:00 97.2 70 18 113/61 (78) 95 10/07/17 13:51 95 Nasal Cannula 2.00 10/07/17 13:51 80 10/07/17 12:00 97.9 58 18 119/69 (86) 95 I/O 10/07/17 10/07/17 10/07/17 10/08/17 10/08/17 10/08/17 07:00 15:00 23:00 07:00 15:00 23:00 Intake Total 0 ml 480 ml 222 ml Output Total 950 ml 600 ml 650 ml Balance -950 ml -120 ml -428 ml Intake Oral 0 ml 480 ml 222 ml Output Urine Total 950 ml 600 ml 650 ml # Bowel Movements 0 0 Result Diagram: 10/07/17 0520 10/07/17 0520 Imaging Last Impressions Chest X-Ray 10/07/17 08 Signed Impressions: CONCLUSION: 1. Stable patchy right upper lobe airspace disease which appears focally more consolidated inferiorly. 2. No significant interval change. CT Angiography 10/06/17 0838 Signed Impressions: CONCLUSION: 1. Negative for pulmonary embolus. 2. Patchy airspace disease in the lungs, right greater than left. Airspace dis ease is predominantly peripheral. Differential diagnosis includes infectious br onchopneumonia but would also consider use of follicular pneumonia. 3. No effusion. Right hilar adenopathy. Small hepatic cyst. Objective Remarks GENERAL: This is a well-nourished, well-developed patient, in no apparent distress. CARDIOVASCULAR: Regular rate and regular rhythm without murmurs, gallops, or rubs. RESPIRATORY: Clear to auscultation. Breath sounds equal bilaterally. No wheezes , rales, or rhonchi. GASTROINTESTINAL: Abdomen soft, non-tender, nondistended. Normal, active bowel sounds MUSCULOSKELETAL: Extremities without clubbing, cyanosis, or edema. NEURO: Alert & Oriented x4 to person, place, time, situation. Moves all ext x4 Medications and IVs Inpatient Medications Albuterol Sulfate (Albuterol Neb) 2.5 mg Q2HR NEB PRN NEB SHORTNESS OF BREATH; Start 10/06/17 at 13:45 Albuterol/ Ipratropium (Duoneb Neb) 1 ampule Q6HR NEB NEB Last administered on 10/08/17at 03:16; Start 10/06/17 at 16:00 Azithromycin 500 mg/Sodium Chloride 250 ml @ 250 mls/hr ONCE ONCE IV Last administered on 10/06/17at 15:05; Start 10/06/17 at 13:30; Stop 10/06/17 at 14:29 ; Status DC Benzonatate (Tessalon) 100 mg TID PRN PO COUGH Last administered on 10/07/17at 20:53; Start 10/06/17 at 15:00 Ceftriaxone Sodium 1000 mg/ Sodium Chloride 100 ml @ 200 mls/hr ONCE ONCE IV Last administered on 10/06/17at 13:52; Start 10/06/17 at 13:30; Stop 10/06/17 at 13:59; Status DC Dextromethorphan (Robitussin La Pediatric Cough Liq) 7.5 mg Q6H PRN PO COUGH; Start 10/06/17 at 16:15 Levofloxacin (Levaquin) 750 mg Q24H PO Last administered on 10/07/17at 14:14; Start 10/06/17 at 14:00 Methylprednisolone Sodium Succinate (SoluMEDROL INJ) 60 mg Q6H IV PUSH Last administered on 10/08/17at 07:52; Start 10/06/17 at 14:00 Sodium Chloride (NS Flush) 2 ml UNSCH PRN IV FLUSH FLUSH AFTER USING IV ACCESS Last administered on 10/06/17at 15:05; Start 10/06/17 at 13:45 A/P Assessment and Plan A/P -Community-acquired pneumonia/vs Atypical pneumonia with suspected COPD exacerbation -Chronic smoker -Failure of outpatient treatment. CT pulmonary angiogram with no evidence of PE, however still shows patchy airspace disease bilaterally, right greater than left. Suspect infectious bronchopneumonia versus follicular pneumonia. Smoking cessation counseling provided. continue with levofloxacin, IV steroids, scheduled and as needed duo nebs. pulmonary consult appreciated. walk test before discharge. -Dizziness. -Vertigo acute onset -Vertigo likely secondary to right ear effusion. Mild discomfort in right ear, cannot be visualized secondary to wax impaction. -Vertigo seems to have resolved at this time. Continue to monitor Antibiotics as above. Discharge Planning dc home when cleared by pulmonary- awaiting walk test. Javier Xiong MD October 08, 2017 09:39
[2017-10-08] MEDS ORDERED: PRED5TAB PO ×3 (09:42→16:12)
[2017-10-08] MEDS ORDERED: LEVA750T9 PO ×3 (09:42→16:13)
[2017-10-08 10:00] LABS: AUTOMATED NEUTROPHIL # 8.6 TH/MM3 (1.8-7.7); BASOPHIL % 0.2 % (0.0-2.0); HEMATOCRIT 44.7 % (39.0-51.0); HEMOGLOBIN 14.7 GM/DL (13.0-17.0); LYMPH % 9.3 % (9.0-44.0); LYMPHOCYTE # 0.9 TH/MM3 (1.0-4.8); MEAN CELL VOLUME 82.8 FL (80.0-100.0); MEAN CORPUSCULAR HEMOGLOBIN 27.3 PG (27.0-34.0); MEAN CORPUSCULAR HGB CONC 32.9 % (32.0-36.0); MEAN PLATELET VOLUME 9.7 FL (7.0-11.0); MONOCYTE # 0.6 TH/MM3 (0-0.9); NEUT % 84.5 % (16.0-70.0); PLATELET COUNT 153 TH/MM3 (150-450); RED CELL DISTRIBUTION WIDTH 14.1 % (11.6-17.2); WHITE BLOOD COUNT 10.2 TH/MM3 (4.0-11.0)
[2017-10-08] MEDS: LEVOFLOXACIN 750 MG TAB PO SCH (13:35)
[2017-10-08 14:54] LABS: MYCOPLASMA PNEUMONIAE IGG Positive (Negative); MYCOPLASMA PNEUMONIAE IGM Negative (Negative)
[2017-10-08] MEDS ORDERED: VENTAER INH (16:08)
--- NOTE | 2017-10-08 16:09 | HHI.DS ---
Discharge Summary Admission Date October 06, 2017 at 13:37 Discharge Date: October 08, 2017 Admitting Diagnosis Pneumonia. Chest pain. (1) Pneumonia ICD Code: J18.9 - Pneumonia, unspecified organism Status: Acute Procedures none Brief History - From Admission 62-year-old male with a [id number] smoking history who presents with a 6 day history of nonproductive cough, fevers up to 102, chills, 2 day history of right ear sensation of blockage, and also today with vertigo, nausea without vomiting. Patient went to urgent care on Wednesday and was prescribed azithromycin,albuterol, prednisone 50 mg daily which he has been taking without improvement. He says that vertigo present earlier today has subsided. He denies any thom pain in his right ear. He reports shortness of breath. Patient denies any chest pain. Denies any diarrhea, constipation, dysuria. CBC/BMP: 10/08/17 0927 10/07/17 0520 Significant Findings Laboratory Tests Test 10/06/17 08:45 10/06/17 20:50 10/07/17 05:20 10/08/17 09:27 Platelet Count 136 TH/MM3 (150-450) 118 TH/MM3 (150-450) Neutrophils (%) (Auto) 74.0 % (16.0-70.0) 84.5 % (16.0-70.0) Monocytes (%) (Auto) 8.6 % (0.0-8.0) Aspartate Amino Transf (AST/SGOT) 53 U/L (15-37) Estimat Glomerular Filtration Rate 68 ML/MIN (>89) 71 ML/MIN (>89) Troponin I LESS THAN 0.02 NG/ML White Blood Count 2.6 TH/MM3 (4.0-11.0) Lymphocytes # (Auto) 0.6 TH/MM3 (1.0-4.8) 0.9 TH/MM3 (1.0-4.8) Random Glucose 192 MG/DL (74-106) Neutrophils # (Auto) 8.6 TH/MM3 (1.8-7.7) Imaging Last Impressions Chest X-Ray 5/24/18 0800 Signed Impressions: CONCLUSION: 1. Stable patchy right upper lobe airspace disease which appears focally more consolidated inferiorly. 2. No significant interval change. CT Angiography 10/06/17 0838 Signed Impressions: CONCLUSION: 1. Negative for pulmonary embolus. 2. Patchy airspace disease in the lungs, right greater than left. Airspace dis ease is predominantly peripheral. Differential diagnosis includes infectious br onchopneumonia but would also consider use of follicular pneumonia. 3. No effusion. Right hilar adenopathy. Small hepatic cyst. PE at Discharge GENERAL: This is a well-nourished, well-developed patient, in no apparent distress. CARDIOVASCULAR: Regular rate and regular rhythm without murmurs, gallops, or rubs. RESPIRATORY: Clear to auscultation. Breath sounds equal bilaterally. No wheezes , rales, or rhonchi. GASTROINTESTINAL: Abdomen soft, non-tender, nondistended. Normal, active bowel sounds MUSCULOSKELETAL: Extremities without clubbing, cyanosis, or edema. NEURO: Alert & Oriented x4 to person, place, time, situation. Moves all ext x4 Hospital Course -Community-acquired pneumonia/vs Atypical pneumonia with suspected COPD exacerbation -Chronic smoker -Failure of outpatient treatment. CT pulmonary angiogram with no evidence of PE, however still shows patchy airspace disease bilaterally, right greater than left. Suspect infectious bronchopneumonia versus follicular pneumonia. Smoking cessation counseling provided. continue with levofloxacin, IV steroids, scheduled and as needed duo nebs. pulmonary consult appreciated. walk test before discharge. Pt Condition on Discharge: Fair Discharge Disposition: Discharge Home Discharge Time: <= 30 minutes Discharge Instructions DIET: Follow Instructions for: Heart Healthy Diet Activities you can perform: Regular-No Restrictions Javier Xiong MD October 08, 2017 16:09
--- NOTE | 2017-10-08 18:13 | MD ---
cc: Debi Mayberry MD DATE OF DISCHARGE: 10/08/2017 HISTORY AND HOSPITAL COURSE: Mr. Lucero is a 62-year-old white male smoker, who presented with shortness of breath and pneumonia. Chest x-ray revealed patchy bilateral infiltrates, almost in a reverse pulmonary edema pattern. White count was not elevated; in fact, it was 6400 and dropped to 2600 and then came back up to 10.2 and his liver functions were mildly elevated. I suspect that he had an atypical pneumonia or possibly even an eosinophilic pneumonia associated with his tobacco use. He probably also has underlying COPD. He responded very well to inhaled bronchodilators along with methylprednisolone and Levaquin. Earlier today, he maintained his saturation in the 90s on room air with exertion. I spoke with Dr. Xiong, the hospitalist. Plan is for discharge today with followup with his primary physician within the next 2 weeks. He will complete 7 more days of Levaquin, slowly taper his prednisone over 2-3 weeks and have a chest x-ray when he is seen in followup. I also explained to the patient that smoking at this point could cause a significant relapse and would certainly cause further pulmonary issues in the future and he seems committed to quitting. He also knows that if he were to get worse prior to his followup with his primary physician that he should return to the emergency room. The patient has done well. He is afebrile today. His lungs are clear. His O2 saturation is 95% on room air. MD KATHARINA Rowan/NILAY , 03:48 PM , 06:12 PM
== END 2017-10-08 17:44 | disposition home or self-care (01) | DRG 190 ==
LOC: NEPC 08:25 → NEDA 13:37 → N04A 15:21
PROVIDERS: ADMIT Internal Medicine; ATTEND Internal Medicine
DX: J44.0 Chronic obstructive pulmonary disease with (acute) lower respiratory infection (principal); J18.9 Pneumonia, unspecified organism; J44.1 Chronic obstructive pulmonary disease with (acute) exacerbation; E78.1 Pure hyperglyceridemia; E78.5 Hyperlipidemia, unspecified; R42 Dizziness and giddiness; H93.8X1 Other specified disorders of right ear; H61.21 Impacted cerumen, right ear; F17.210 Nicotine dependence, cigarettes, uncomplicated; Z88.5 Allergy status to narcotic agent
CPT/HCPCS: 71045; 71275; 80048; 80053; 82550; 83880; 84484; 85025; 85379; 85610; 85730; 86738; 87040; 93005; 94618; 94640; 94664; J0456; J0696; J2930; J7050; Q9967